=== PATIENT | male | born 2000 | race Caucasian/White ===

== ENCOUNTER 2024-05-01 12:40 | Emergency (ER) | payer OTHER, SELFPAY ==
[2024-05-01] MEDS ORDERED: HYDROCODONE/APAP 5/325 MG TAB ONE (13:23)
[2024-05-01] MEDS ORDERED: dexAMETHasone 10 MG/ML VIAL ONE (13:23)
[2024-05-01] MEDS ORDERED: DIAZEPAM 5 MG TABLET ONE (13:24)
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
--- NOTE | 2024-05-01 16:10 | ER ---
Nurse's Notes [facility] Name: Alexx Barrios Jr Age: 23 yrs Sex: Male : 2000 Arrival Date: 05/01/2024 Time: 12:40 Bed 11 Private MD: Diagnosis: Sciatica, right side Presentation: 05/01 13:19 Chief complaint: Patient states: Right leg pain onset 1 week ago. Pt states that the cm10 pain began after he popped his back. Coronavirus screen: Client denies travel out of the [place] in the last 14 days. Ebola Screen: Patient denies travel to an Ebola-affected area in the 21 days before illness onset. No symptoms or risks identified at this time. Initial Sepsis Screen: Does the patient meet any 2 criteria? HR > 90 bpm. Does the patient have a suspected source of infection? No. Patient's initial sepsis screen is negative. Risk Assessment: Do you want to hurt yourself or someone else? Patient reports no desire to harm self or others. Onset of symptoms was May 01, 2024. 13:19 Method Of Arrival: Ambulatory cm10 13:19 Acuity: WILLIAM 3 cm10 Triage Assessment: 13:20 General: Appears in no apparent distress. uncomfortable, Behavior is calm, cooperative. cm10 Neuro: No deficits noted. Level of Consciousness is awake, alert, obeys commands, Oriented to person, place, time, situation, Appropriate for age. Respiratory: No deficits noted. Airway is patent Respiratory effort is even, unlabored, Respiratory pattern is regular, symmetrical. Historical: - Allergies: 13:20 No Known Allergies; cm10 - Home Meds: 13:20 None [Active]; cm10 - PMHx: 13:20 None; cm10 - PSHx: 13:20 None; cm10 - Immunization history:: Adult Immunizations unknown. - Infectious Disease History:: Denies. - Social history:: Smoking status: Patient reports the use of cigarette tobacco products, smokes one pack cigarettes per day. Screenin:21 [facility] ED Fall Risk Assessment (Adult) History of falling in the last 3 months, iw including since admission No falls in past 3 months (0 pts) Confusion or Disorientation No (0 pts) Intoxicated or Sedated No (0 pts) Impaired Gait No (0 pts) Mobility Assist Device Used No (0 pt) Altered Elimination No (0 pt) Score/Fall Risk Level 0 - 2 = Low Risk Oriented to surroundings, Maintained a safe environment. Abuse screen: Denies threats or abuse. Denies injuries from another. Nutritional screening: No deficits noted. Tuberculosis screening: No symptoms or risk factors identified. Assessment: 13:20 General: Appears in no apparent distress. Behavior is calm, cooperative. Pain: iw Complains of pain in right low back. Neuro: Level of Consciousness is awake, alert, obeys commands, Oriented to person, place, time, situation, Moves all extremities. Cardiovascular: Patient's skin is warm and dry. Respiratory: Respiratory effort is even, unlabored, Respiratory pattern is regular. Derm: Skin is intact, is healthy with good turgor. Musculoskeletal: Range of motion: intact in all extremities. Vital Signs: 13:19 BP 133 / 82; Pulse 98; Resp 15; Temp 98(TE); Pulse Ox 100% on R/A; Weight 79.38 kg; cm10 Height 6 ft. 0 in. ; Pain 8/10; 13:19 Body Mass Index 23.73 (79.38 kg, 182.88 cm) cm10 13:19 Pain Scale: Adult cm10 ED Course: 12:44 Patient arrived in ED. sj2 12:48 Tobias Pleitez DO is Attending Physician. ms3 13:20 Triage completed. cm10 13:20 Arm band placed on right wrist. Patient placed in waiting room. cm10 13:20 Patient has correct armband on for positive identification. Provided Education on: . iw 14:58 Lumbar Spine (3 Views) XRAY In Process Unspecified. EDMS 16:09 Seth James DO is Referral Physician. ms3 16:21 No provider procedures requiring assistance completed. Patient did not have IV access iw during this emergency room visit. 16:22 Stephanie Hooks, RN is Primary Nurse. iw Administered Medications: 13:27 Drug: Decadron - Dexamethasone IVP 10 mg IVP once {Note: Given IM.} Route: IVP; Site: [facility] Other; 13:30 Follow up: Response: No adverse reaction; Medication administered at discharge. iw 13:27 Drug: Diazepam PO 5 mg PO once Route: PO; cm10 14:00 Follow up: Response: No adverse reaction; Marked relief of symptoms iw 13:27 Drug: HYDROcodone-acetaminophen PO 5 mg-325 mg 1 tabs PO once Route: PO; cm10 14:10 Follow up: Response: No adverse reaction iw Medication: 13:20 VIS not applicable for this client. iw Outcome: 16:09 Discharge ordered by . ms3 16:21 Discharged to home ambulatory, iw 16:21 Condition: good 16:21 Discharge instructions given to patient, Instructed on discharge instructions, follow up and referral plans. Demonstrated understanding of instructions, follow-up care, medications, Prescriptions given X 2, 16:22 Patient left the ED. iw Signatures: Dispatcher [employer] EDMS Stephanie Hooks, RN RN iw Tobias Pleitez DO DO ms3 Marta Elias RN RN cm10 Juventino Hale2
[2024-05-02 16:56] VITALS: BP 133/82; TEMP 98; O2SAT 100
== END 2024-05-01 16:22 | disposition home or self-care (01) ==
LOC: ER 12:40
DX: M54.31 Sciatica, right side (principal)
CPT/HCPCS: 72100; 96374; 99284; J1100